=== PATIENT | female | born 1945 | race Caucasian/White ===

== ENCOUNTER → 2017-01-22 | Outpatient (CLI) | payer MEDICARE ==
--- NOTE | 2017-01-23 19:33 | Diagnostic Imaging Report ---
INDICATION: Screening. EXAMINATION: Bilateral digital screening mammogram with CAD, 01/22/2017 The current study was also evaluated with a Computer Aided Detection (CAD) system. COMPARISON: 10/27/2013, 11/11/13, 11/17/14 and 12/05/2015. FINDINGS: The breasts are heterogeneously dense and stable in appearance. No new suspicious microcalcifications or dominant masses are appreciated. IMPRESSION: Stable appearance of both breasts with no mammographic evidence for malignancy. Yearly screening is recommended. ACR BI-RADS Category 1: Negative. Result letter will be mailed to the patient. Note: At least 10% of breast cancer is not imaged by mammography. Dictated by: Dictated on workstation # [id number]
== END ==
LOC: RAD 08:25
PROVIDERS: ATTEND Family Medicine
DX: Z12.31 Encounter for screening mammogram for malignant neoplasm of breast (principal)